=== PATIENT | male | born 1955 | race Caucasian/White ===

== ENCOUNTER 2021-12-23 09:44 | Outpatient (CLI) | payer OTHER ==
--- NOTE | 2021-12-24 09:50 | XRAY Report ---
PROCEDURE: Chest 2 View X-Ray INDICATIONS: COUGH TECHNIQUE: 2 view(s) of the chest. COMPARISON: Prior chest radiograph dated 10/26/2015 FINDINGS: Surgical changes and devices: None. Lungs and pleura: No pleural effusions or pneumothorax. Lung volumes are increased and hemidiaphragm s are flattened. No focal lung consolidation. Mild interstitial prominence. Mediastinum: Mediastinal contours are normal. Heart size is normal. Bones and chest wall: No suspicious bony abnormalities. Soft tissues appear unremarkable. IMPRESSION: 1. Large lung volumes suggesting COPD and there is prominence of the interstitium which is similar to prior examination. No acute cardiopulmonary disease. Reviewed by: ESTRELLA Martinez on 12/24/2021 9:49 AM PDT Approved by: Pito Flores MD on 12/24/2021 9:49 AM PDT Station ID: [id number]
== END 2021-12-23 09:45 | disposition home or self-care (01) ==
LOC: DI.N 09:44
PROVIDERS: ATTEND Physician Assistant
DX: J44.9 Chronic obstructive pulmonary disease, unspecified (principal); Z85.118 Personal history of other malignant neoplasm of bronchus and lung

== ENCOUNTER 2023-04-27 09:33 | Outpatient (CLI) | payer OTHER ==
--- NOTE | 2023-04-27 12:39 | CT Report ---
PROCEDURE: Low Dose Lung Cancer Screen INDICATIONS: HIST OF SMOKING TECHNIQUE: A CT scan of the chest was performed. Intravenous contrast media was not administered. Images were re corded and evaluated at appropriate window settings. Reformats: axial MIP of the chest, coronal and s agittal. For radiation dose reduction, the following was used: automated exposure control, adjustment of mA and/or kV according to patient size. COMPARISON: Chest radiographs 12/23/2021. FINDINGS: Image quality: Excellent. Prior cancer history: No. Lungs and pleura: No pleural effusions. No pneumothorax. Moderate centrilobular emphysema. No suspic ious pulmonary nodules which require follow up. Dense calcified lesion at the left upper lobe is cons idered benign (91/3). Benign calcified granuloma is seen at the left lung base. 2 mm peripheral subpleural nodule in the lingula (226/3). 2 mm nodule in the posterior right lower lobe (224/3). Mediastinum: Heart size is normal. No pericardial effusion. No large vessel abnormality. No mediastin al adenopathy by size criteria. Mild coronary calcifications. Chest wall and lower neck: Thyroid is unremarkable. No axillary or supraclavicular adenopathy by size . Bones: No aggressive osseous abnormality. Postsurgical changes are partially included at the lower ce rvical spine. Mild spondylosis. Upper Abdomen: Coarse calcifications in the spleen are most likely related to prior granulomatous dis ease. Simple cyst is partially imaged in the inner polar region of the right kidney. There is a possi ble small nonobstructing left renal calculus that is incompletely imaged. IMPRESSION: Lung RAD: 2 - Benign. Recommendation: Continue annual screening in 12 Months with LDCT Non-Lung Significant Findings: None. Reviewed by: Nasim Aguilar MD on 04/27/2023 12:38 PM PDT Approved by: Nasim Aguilar MD on 04/27/2023 12:38 PM PDT Station ID: [id number]
== END 2023-04-27 09:34 | disposition home or self-care (01) ==
LOC: DI 09:33
PROVIDERS: ATTEND Physician Assistant
DX: Z12.2 Encounter for screening for malignant neoplasm of respiratory organs (principal); Z87.891 Personal history of nicotine dependence; J43.2 Centrilobular emphysema; J98.4 Other disorders of lung; R91.8 Other nonspecific abnormal finding of lung field; I25.10 Atherosclerotic heart disease of native coronary artery without angina pectoris; M47.812 Spondylosis without myelopathy or radiculopathy, cervical region; D73.89 Other diseases of spleen; N28.1 Cyst of kidney, acquired